=== PATIENT | female | born 1985 | race African-American/Black ===

== ENCOUNTER 2017-02-14 02:15 | Emergency (ER) | payer OTHER ==
[~2017-02-14] VITALS: Ht 162.6 cm; Wt 68.0 kg
--- NOTE | 2017-02-14 02:20 | ED PSYCHIATRIC COMPLAINT ---
History of Present Illness General Chief Complaint: ETOH/Drug Related Complaint Stated Complaint: ETOH Source: patient, EMS Exam Limitations: intoxication Vital Signs & Intake/Output Vital Signs & Intake/Output Vital Signs Date Time Temp Pulse Resp B/P Pulse O2 O2 Flow FiO2 Ox Delivery Rate 02/14 0615 98.4 90 18 110/64 97 Room Air 02/14 0456 100 Room Air 02/14 0232 96.1 136 22 129/78 98 Room Air see triage (SU DOCKERY MD) Triage Nurses Notes Reviewed? yes Onset: Abrupt Duration: JUST PRIOR TO ARRIVAL Timing: single episode today Severity: severe Associated Symptoms: INTOXICATED HPI: 31 year old female BIBA from grandmother's house after creating a disturbance. According to EMS she showed up at her grandmothers house banging on the door and then after being let in started creating a disturbance in the house and police was called. Patient admits to drinking tonight, very tearful and states that she did nothing wrong. Reports that she just wants to go to sleep. Patient states "don't treat me like a crack addict". I'm just drunk. I drank danny and linnette. (SU DOCKERY MD) Past History Travel History Traveled to [place] past 21 day No Medical History Any Pertinent Medical History? none (UNKNOWN) Surgical History Surgical History: unobtainable Family History Hx Contributory? No (SU DOCKERY MD) Review of Systems Review of Systems Constitutional: Reports: see HPI (UNABLE TO OBTAIN). (SU DOCKERY MD) Physical Exam Physical Exam General Appearance: well developed/nourished, alert, awake, mild distress, intoxicated Head: atraumatic, normal appearance Eyes: Bilateral: PERRL. Ears, Nose, Throat: hearing grossly normal Neck: normal inspection, full range of motion Respiratory: normal breath sounds, chest non-tender Cardiovascular: regular rate/rhythm Gastrointestinal: normal bowel sounds, soft Extremities: FROM Neurological/Psychiatric: awake, alert, anxious, INTOXICATED, TEARFUL Appearance/Memory/Insight: disheveled, impaired insight Behavoir/Eye Contact/Speech: uncooperative, increased rate of speech Thoughts/Hallucinations: UNABLE TO ASSESS Skin: intact, normal color, warm/dry SAD PERSONS Done? unobtained due to conditi (SU DOCKERY MD) Progress Differential Diagnosis: ALCOHOL INTOXICATION Plan of Care: Orders Procedure Date/time Status Regular Diet 02/14 B Active URINE DRUGS OF ABUSE 02/14 222 Active URINE 02/14 222 Active 2:48 AM PATIENT REQUESTED TO CALL MOTHER TO PICK HER UP. MOTHER REFUSING TO COME AND PICK HER UP, STATES THAT HER GRANDMOTHER JUST HAD SURGERY AND SHE CAN'T MANAGE HER LIKE THIS. 3 AM Patient very intoxicated and agitated. Mother called back stating she was out drinking with her sister. Sister called asking to come and see the patient. Informed by the nurse that the patient is too intoxicated and agitated for visitors at this time. 3:11 am I asked Terri if she wanted me to speak with her sister or let her come to the ER and she states I don't want her to come here right now, I'm upset. I had 3 drinks and why would she let them take me here. Patient requesting juice and crackers. 6 AM SLEEPING IN ROOM. HEART RATE IN 90'S. (SU DOCKERY MD) Hand-Off Endorsed To: RASHARD HUYNH MD Endorsed Time: 0700 Pending: other (SOBRIETY) (SU DOCKERY MD) Comments: 02/14/2017 8:21:09 AM Patient signed out to me by Dr. Dockery at shift varnish remover. The patient is awake alert with clear speech and stable gait. She has no specific complaint at this time. (ERICKA CAMILO,RASHARD Acuna) Departure Departure Condition: Stable Departure Forms: Customer Survey General Discharge Information (SU DOCKERY MD) Departure Disposition: HOME OR SELF CARE Clinical Impression Primary Impression: Alcohol intoxication Qualifiers: Complication of substance-induced condition: uncomplicated Qualified Code: F10.120 - Alcohol abuse with intoxication, uncomplicated Additional Instructions: Consider an alcohol detox program. Follow-up with your primary care doctor or the [facility] practice if he did not have one currently as soon as possible for general medical evaluation. Return if any concerns or sudden worsening. Thank you for choosing the [facility] Emergency Department for your care. It was a pleasure to serve you today. Rashard Huynh M.D. [facility] (ERICKA CAMILO,RASHARD Acuna)
[2017-02-14 08:37] VITALS: BP 115/72
== END 2017-02-14 08:47 ==
LOC: ERH 02:15
DX: F10.129 Alcohol abuse with intoxication, unspecified (principal)
CPT/HCPCS: 80307; 81025

== ENCOUNTER 2018-03-03 13:23 | Emergency (ER) | payer OTHER ==
[~2018-03-03] VITALS: Ht 154.9 cm; Wt 68.0 kg
--- NOTE | 2018-03-03 14:16 | ED EYE COMPLAINT ---
History of Present Illness General Chief Complaint: Eye Problems Stated Complaint: RT EYE IRRITATION Source: patient, old records Exam Limitations: no limitations Vital Signs & Intake/Output Vital Signs & Intake/Output Vital Signs Date Time Temp Pulse Resp B/P B/P Pulse O2 O2 Flow FiO2 Mean Ox Delivery Rate 03/03 1445 98.2 77 19 119/76 99 Room Air 03/03 1328 96.6 80 18 129/84 96 Room Air Allergies Coded Allergies: penicillin G (UNKNOWN 03/03/18) Reconcile Medications Ketorolac Tromethamine (Acular) 0.5 % DROPS 1 GTT OPH 4 TIMES/DAY corneal abrasion Polytrim (Polytrim Eye Drops) 10,000 UNIT-1 MG/ML DROPS 1 GTT OPH Q6 corneal abrasion Triage Note: PT BIBA C/C RIGHT EYE PAIN, TEARING X 1 DAY. UNSURE IF FB IN EYE Triage Nurses Notes Reviewed? yes Onset: Abrupt Duration: day(s): (2), constant Timing: recent history Injury Environment: home Severity: moderate Severity Numbers: 6 No Modifying Factors: none Right Eye Associated Symptoms: itching, pain, foreign body sensation : No Patient currently breastfeeds: No HPI: 32-year-old female presents to the ER for evaluation complaining of foreign body sensation to her right eye since yesterday while she was sitting outside. She states she is attempted to wash it out without success. She is supposed to wear contact lenses however has not been wearing them recently. She denies any discharge from her eye, no redness warmth or swelling around her eye there is no obvious trauma. No fever no chills no other modifying factors or associated symptoms. She denies any left eye symptoms. (Quinten Ferreira) Past History Travel History Traveled to [place] past 21 day No Medical History Any Pertinent Medical History? none Surgical History Surgical History: unobtainable Psychosocial History What is your primary language Mohawk Tobacco Use: Current Daily Use Daily Tobacco Use Amount/Type: =< 4 Cigarettes daily Family History Hx Contributory? No (Quinten Ferreira) Review of Systems Review of Systems Constitutional: Reports: see HPI. Comments Review of systems: See HPI, All other systems negative. Constitutional, no chills no fever, HEENT: no sore throat no congestion Cardiovascular: No chest pain Skin: no rashes, no change in skin Respiratory: No dyspnea no cough GI: No nausea no vomiting, Muscle skeletal: No joint pain, no back pain Neurologic: , no headache Heme/endocrine: No bruising Immunology: No lymphadenopathy (Quinten Ferreira) Physical Exam General Appearance: well developed/nourished, no apparent distress, alert General Inspection: normal inspection General Inspection: normal inspection Eyelid: normal inspection, everted for exam Conjunctiva/Sclera: injected Cornea: examined w/fluorescein, abrasion EOM: intact Pupil: normal accommodation, normal pupil, PERRL Physical Exam Comments: Well-developed well-nourished patient in no apparent distress. HEENT: Atraumatic, extraocular motion intact Neck: Supple, FROM Back: FROM Respiratory: No respiratory distress. Patient speaking in full complete sentences. Extremities: full range of motion Neuro: awake, alert, and oriented to person, place and time. There were no obvious focal neurologic abnormalities. Skin: Warm & dry;No appreciable rash on exposed skin Psych: Mood affect normal, normal memory normal judgment. (Quinten Ferreira) Progress Differential Diagnosis: corneal abrasion, corneal foreign body, conjunctivitis, glaucoma, hsv, corneal ulcer Plan of Care: the eye was anesthezied with tetracaine drops, fluroscein drops instilled, small corneal abrasion noted at 3 oclock. the eyelids were everted with a qtip, a qtip was run under the eyelids, no visualized fb, pt feeling imrpopved after procedure. i d/w her plan of care and the possiblity of a fb not seen on examinatino still exists. she will f/u with optho dr owens. she feels comfortable with plan cleared for dc (Quinten Ferreira) Departure Departure Time of Disposition: 1434 Disposition: HOME OR SELF CARE Condition: Stable Clinical Impression Primary Impression: Corneal abrasion Referrals: Patient Has No Primary Care Dr (PCP/Family) Juanito CAMILO,Arvind Nielsen Additional Instructions: Polytrim and Acular eyedrops as discussed. Cool compresses or ice packs as needed. As discussed the possibility of a foreign body not seen on examination still exists, follow up with public safety dispatcher Dr. owens this week if symptoms persist Departure Forms: Customer Survey General Discharge Information Prescriptions: Current Visit Scripts Ketorolac Tromethamine (Acular) 1 GTT OPH 4 TIMES/DAY #5 ML Polytrim (Polytrim Eye Drops) 1 GTT OPH Q6 #10 ML (Quinten Ferreira) PA/METALLURGICAL ENGINEER Co-Sign Statement Statement: ED Attending supervision documentation- I saw and evaluated the patient. I have also reviewed all the pertinent lab results and diagnostic results. I agree with the findings and the plan of care as documented in the PA's/METALLURGICAL ENGINEER's documentation. x I have reviewed the ED Record and agree with the PA's/METALLURGICAL ENGINEER's documentation. [] Additions or exceptions (if any) to the PAs/METALLURGICAL ENGINEER's note and plan are summarized below: [] (Romain CAMILO,Shahzad)
[2018-03-03] MEDS ORDERED: POLYTRIM EYE DR10 ML OPH (14:35)
[2018-03-03] MEDS ORDERED: ACULAR5 ML OPH (14:35)
[2018-03-03 14:45] VITALS: BP 119/76
== END 2018-03-03 14:44 ==
LOC: ERH 13:23
DX: S05.01XA Injury of conjunctiva and corneal abrasion without foreign body, right eye, initial encounter (principal); X58.XXXA Exposure to other specified factors, initial encounter; Y92.9 Unspecified place or not applicable; Y93.9 Activity, unspecified